=== PATIENT | female | born 2000 | race Caucasian/White ===

== ENCOUNTER 2021-02-26 14:32 | Outpatient (REF) | payer OTHER, SELFPAY ==
[2021-02-26 17:43] LABS: SARS COV2 PCR INHOUSE NEGATIVE (Negative)
== END 2021-02-26 14:33 | disposition home or self-care (01) ==
LOC: HO.LAB 14:32
PROVIDERS: Visit Provider Internal Medicine
DX: Z20.822 Contact with and (suspected) exposure to COVID-19 (principal)
CPT/HCPCS: C9803; U0003

== ENCOUNTER 2022-11-04 16:39 | Emergency (ER) | payer MEDICAID, SELFPAY ==
--- NOTE | 2022-11-04 16:46 | ED_ITS ---
HPI - Back Pain/Injury General Chief Complaint: Urogenital-Female <Zayda Churchill NP - Last Filed: 11/04/22 16:49> Stated Complaint: lower back pain, using bathroom a lot <Zayda Churchill NP - Last Filed: 11/04/22 16:49> Time Seen by Provider: 11/04/22 17:53 <Zayda Churchill NP - Last Filed: 11/04/22 16:49> Source: patient <RANJANA Orellana - Last Filed: 11/04/22 19:02> Mode of arrival: ambulatory <RANJANA Orellana - Last Filed: 11/04/22 19:02> Limitations: no limitations <RANJANA Orellana - Last Filed: 11/04/22 19:02> History of Present Illness HPI Narrative: 22 yo female presenting to the ER with left sided lower back pain along with urinary frequency and increased volume of urination for the last couple of days. She reports she was sitting on the couch when the back started to hurt. It is an ache and it is constant. It is worse with movement. It does not radiate. She has been taking Tylenol with minimal improvement in the pain. She denies any numbness, tingling, weakness into the extremity. No fall or trauma. Patient also reports the last couple of days she has had increased urinary frequency and voiding large amounts. She denies any dysuria or hematuria. No abdominal pain, nausea, vomiting, fevers, chills. No vaginal discharge. No pelvic pain. <RANJANA Orellana - Last Filed: 11/04/22 19:02> MD elicited complaint: back pain <RANJANA Orellana - Last Filed: 11/04/22 19:02> Onset (ago): day(s) <RANJANA Orellana Last Filed: 11/04/22 19:02> Timing: constant <RANJANA Orellana Last Filed: 11/04/22 19:02> Severity: moderate <RANJANA Orellana Last Filed: 11/04/22 19:02> Similar Symptoms Previously: No <RANJANA Orellana - Last Filed: 11/04/22 19:02> Quality: aching <RANJANA Orellana - Last Filed: 11/04/22 19:02> Location: left lower back <RANJANA Orellana - Last Filed: 11/04/22 19:02> Radiation: none <RANJANA Orellana - Last Filed: 11/04/22 19:02> Exacerbating factors: movement <RANJANA Orellana - Last Filed: 11/04/22 19:02> Relieving factors: none <RANJANA Orellana - Last Filed: 11/04/22 19:02> Context: unknown <RANJANA Orellana - Last Filed: 11/04/22 19:02> Associated symptoms: increased urinary urgency and increased urinary frequency <RANJANA Orellana - Last Filed: 11/04/22 19:02> Treatments prior to arrival: acetaminophen <RANJANA Orellana - Last Filed: 11/04/22 19:02> Work related injury: No <RANJANA Orellana - Last Filed: 11/04/22 19:02> Related Data Home Medications: Previous Rx's Medication Instructions Recorded naproxen 500 mg tablet 500 mg PO BID PRN pain #20 tabs 11/04/22 nitrofurantoin 100 mg PO Q12H 5 days #10 caps 11/04/22 monohydrate/macrocrystals 100 mg capsule (Macrobid) <Zayda Churchill NP - Last Filed: 11/04/22 16:49> Allergies/Adverse Reactions: Allergies Allergy/AdvReac Type Severity Reaction Status Date / Time No Known Allergies Allergy Unverified 08/10/20 16:50 <Zayda Churchill NP - Last Filed: 11/04/22 16:49> Review of Systems 2 Review of Systems: Constitutional: No Fever, No Chills ENT/Mouth: No sore throat, No Rhinorrhea Cardiovascular: No Chest Pain, No SOB Respiratory: No Cough, No Sputum Gastrointestinal: No Nausea, No Vomiting, No Diarrhea, No abdominal Pain Genitourinary: No Dysuria, + Urinary Frequency, No Hematuria Musculoskeletal: No joint pain, + Myalgias Skin: No Skin Lesions, No rash Neuro: No Weakness, No Numbness Heme/Lymph: No Lymphadenopathy <RANJANA Orellana - Last Filed: 11/04/22 19:02> [facility] Social History Social History: Social History Advance Directives: No Advance Directives Information Provided: Yes <Zayda Churchill NP - Last Filed: 11/04/22 16:49> Physical Exam Vital Signs: Vital Signs: Last Vital Signs Temp 97.9 F 11/04/22 16:51 Pulse 82 11/04/22 16:51 Resp 16 11/04/22 16:51 BP 125/70 11/04/22 16:51 Pulse Ox 98 11/04/22 16:51 O2 Del Method 11/04/22 16:51 BMI result Body Mass Index 40.3 <Zayda Churchill NP - Last Filed: 11/04/22 16:49> Vital Signs: Last Vital Signs Temp 97.9 F 11/04/22 16:51 Pulse 82 11/04/22 16:51 Resp 16 11/04/22 16:51 BP 125/70 11/04/22 16:51 Pulse Ox 98 11/04/22 16:51 O2 Del Method 11/04/22 16:51 BMI result Body Mass Index 40.3 <RANJANA Orellana - Last Filed: 11/04/22 19:02> Appearance: Alert. Oriented X3. No acute distress. HEENT: normal inspection CVS: Normal heart rate and rhythm. Pulses normal. Respiratory: No respiratory distress. Skin: Skin warm and dry. Normal skin color. Normal skin turgor. No rashes. Back: left lower lumbar area with soft tissue tenderness. no midline tenderness. normal ROM. No CVA tenderness. Extremities:normal inspection, normal ROM Neuro: Oriented X 3. No motor deficit. No sensory deficit. steady gait <RANJANA Orellana - Last Filed: 11/04/22 19:02> Course Course Course Narrative: This is a rapid medical exam. Deferred additional HPI, ROS, PE to primary provider. 22 yo female w/ history of depression/anxiety here with left lower back pain into her buttocks, urinary frequency/urgency x 3 days. No abdominal pain, vaginal discharge, dysuria, hematuria, fevers, chills, vomiting. No injury/trauma. Will check UA, ur preg. VSS. <Zayda Churchill NP - Last Filed: 11/04/22 16:49> Reevaluation(s) Reevaluation #1: 22-year-old female presenting to the ER with nontraumatic left lower back pain along with some urinary symptoms. Her UA is mildly positive. Given her symptoms will empirically treat while awaiting urine culture. She also has soft tissue tenderness of left lower lumbar area, doubt it is related. She has no evidence of pyelonephritis, no CVA tenderness. She appears well. Will treat back pain with NSAID and Macrobid for possible UTI. Patient encourage follow-up with Her PCP. Stable for discharge home. <RANJANA Orellana - Last Filed: 11/04/22 19:02> Medical Decision Making Lab Data Labs: Lab Results 11/04/22 11/04/22 Range/Units 17:54 17:54 Urine Color Yellow Urine Appearance Clear Urine pH 7.0 (5.0-9.0) Ur Specific [place] 1.020 (1.005-1.025) Urine Protein Negative (Neg-Trace) mg/dL Urine Glucose (UA) Negative (Negative) mg/dL Urine Ketones Negative (Negative) mg/dL Urine Blood Negative (Negative) Urine Nitrite Negative (Negative) Ur Leukocyte Esterase Trace H (Negative) Urine RBC 0-2 (0-2) /HPF Urine WBC 0-5 (0-5) /HPF Ur Squamous Epith Cells 0-2 (0-2) /HPF Urine Bacteria Trace (None Seen) Hyaline Casts 0-2 (0-2) /LPF Urine Test NEGATIVE (NEGATIVE) <Zayda Churchill NP - Last Filed: 11/04/22 16:49> Lab Results 11/04/22 11/04/22 Range/Units 17:54 17:54 Urine Color Yellow Urine Appearance Clear Urine pH 7.0 (5.0-9.0) Ur Specific [place] 1.020 (1.005-1.025) Urine Protein Negative (Neg-Trace) mg/dL Urine Glucose (UA) Negative (Negative) mg/dL Urine Ketones Negative (Negative) mg/dL Urine Blood Negative (Negative) Urine Nitrite Negative (Negative) Ur Leukocyte Esterase Trace H (Negative) Urine RBC 0-2 (0-2) /HPF Urine WBC 0-5 (0-5) /HPF Ur Squamous Epith Cells 0-2 (0-2) /HPF Urine Bacteria Trace (None Seen) Hyaline Casts 0-2 (0-2) /LPF Urine Test NEGATIVE (NEGATIVE) <RANJANA Orellana - Last Filed: 11/04/22 19:02> Discharge Plan Discharge Clinical Impression: Urinary tract infection, Low back pain <Zayda Churchill NP - Last Filed: 11/04/22 16:49> Patient Disposition: Home, Self-Care <Zayda Churchill NP - Last Filed: 11/04/22 16:49> Instructions: Urinary Tract Infection in Women (ED), Low Back Strain (ED), Lower Back Exercises (ED) <Zayda Churchill NP - Last Filed: 11/04/22 16:49> Additional Instructions: Your urine test was positive for infection - take the prescribed antibiotic as directed, complete the entire course Take the prescribed anti-inflammatory pain medication as needed for pain in the back Follow up with your doctor. If you develop new or worsening symptoms call 911 or come back to the ER for further evaluation. <Zayda Churchill NP - Last Filed: 11/04/22 16:49> Prescriptions: New nitrofurantoin monohyd/m-cryst [Macrobid] 100 mg capsule 100 mg PO Q12H 5 Days Qty: 10 0RF Rx Instructions: must administer with a meal/food naproxen 500 mg tablet 500 mg PO BID PRN (Reason: pain) Qty: 20 0RF <Zayda Churchill NP - Last Filed: 11/04/22 16:49> Interventions: ED Discharge Assessment Last Done: 11/04/22 18:29 <Zayda Churchill NP - Last Filed: 11/04/22 16:49> Discharge Date/Time: 11/04/22 18:29 <Zayda Churchill NP - Last Filed: 11/04/22 16:49>
[2022-11-04 16:50] VITALS: BP 125/70; PULSE 82; RESP 16; TEMP 36.6; O2SAT 98; BMI 40.3
[2022-11-04 16:51] VITALS: BP 125/70; PULSE 82; RESP 16; TEMP 36.6; O2SAT 98; BMI 40.3
[2022-11-04 18:03] LABS: Appearance Urine Clear; Color Urine Yellow; Glucose Urine UA Negative (Negative); Leukocyte Esterase Urine Trace (Negative); Nitrite Urine Negative (Negative); UMIC TRIGGER UACC YES; Urine Blood Negative (Negative); Urine Ketones Negative (Negative); Urine Protein Negative (Neg-Trace)
[2022-11-04 18:06] LABS: UPreg QC Valid YES; Urine Pregnancy NEGATIVE (NEGATIVE)
[2022-11-04 18:08] LABS: Bacteria Urine Trace (None Seen); Hyaline Casts Urine 0-2 /LPF (0-2); RBC Urine 0-2 /HPF (0-2); Squamous Epithelial Cell Urine 0-2 /HPF (0-2); WBC Urine 0-5 /HPF (0-5)
== END 2022-11-04 18:29 | disposition home or self-care (01) ==
PROVIDERS: Nurse Practitioner Family; Emergency Provider Emergency Medicine
DX: N39.0 Urinary tract infection, site not specified (principal); M54.50 Low back pain, unspecified
CPT/HCPCS: 81001; 81025; 99282; 99283